=== PATIENT | male | born 1950 | race Caucasian/White ===

== ENCOUNTER 2017-05-20 09:16 | Emergency (ER) | payer BC ==
--- NOTE | 2017-05-20 09:27 | ED Physician Documentation ---
PD HPI GI BLEED - Stated complaint Stated Complaint: BLACK STOOL - Chief complaint Chief Complaint: Abd Pain - History obtained from History obtained from: Patient - History of Present Illness Timing - onset: How many weeks ago (2 1/2) Timing - duration: Weeks Timing - details: Abrupt onset, Still present Associated symptoms: Black/tarry stool (today, but had taken Pepto first time yesterday. Has had diarrhea for 2 1/2 weeks and noted some cramping pains yesterday.), Diarrhea. No: Vomiting, Coffee ground emesis, Constipation, Chest pain, Fever Contributing factors: No: Sick contact, Bad food, Travel, Recent antibiotics, Alcohol use, NSAID use Improved by: No: BM Worsened by: Eating Similar symptoms before: Has not had sx before Recently seen: Not recently seen Review of Systems Constitutional: reports: Myalgias. denies: Fever, Chills Nose: denies: Rhinorrhea / runny nose, Congestion Throat: denies: Sore throat Cardiac: denies: Chest pain / pressure Respiratory: denies: Cough GI: reports: Diarrhea : denies: Dysuria, Frequency Neurologic: reports: Generalized weakness. denies: Focal weakness, Numbness, Near syncope Endocrine: denies: Weight loss, Easy bruising / bleeding Immunocompromised: denies: Immunocompromised PD PAST MEDICAL HISTORY - Past Medical History Cardiovascular: None Respiratory: None Neuro: None Endocrine/Autoimmune: None GI: None - Present Medications Home Medications: Ambulatory Orders Medication Instructions Recorded Confirmed Dexamethasone [Decadron] 4 mg PO DAILY #5 tablet 05/20/17 Diphenoxylate/Atropine [Lomotil] 1 each PO QID PRN #20 tablet 05/20/17 Saccharomyces Boulardii [Florastor] 250 mg PO BID #20 capsule 05/20/17 - Allergies Allergies/Adverse Reactions: Allergies Allergy/AdvReac Type Severity Reaction Status Date / Time No Known Drug Allergies Allergy Verified 05/20/17 09:24 PD ED PE NORMAL - General General: Alert and oriented X 3, No acute distress, Well developed/nourished - HEENT HEENT: Ears normal, Pharynx benign - Neck Neck: Supple, no meningeal sign, No adenopathy - Cardiac Cardiac: RRR, No murmur - Respiratory Respiratory: Clear bilaterally - Abdomen Abdomen: Normal bowel sounds, Soft, Non tender, Non distended, No organomegaly - Rectal Rectal: Deferred, Other (he had BM in ED which was soft dark, and tested guiac negative. ) - Back Back: No CVA TTP - Derm Derm: Normal color, Warm and dry - Extremities Extremities: No deformity, No tenderness to palpate, Normal ROM s pain, No edema , No calf tenderness / cord - Neuro Neuro: Alert and oriented X 3, No motor deficit, Normal speech Results - Vitals Vitals: Vital Signs - 24 hr 05/20/17 05/20/17 09:22 10:30 Temperature 36.5 C 36.6 C Heart Rate 96 84 Respiratory 16 15 Rate Blood Pressure 190/103 H 155/88 H O2 Saturation 96 96 Oxygen O2 Source Room air - Labs Labs: Microbiology 05/20/17 11:10 Clostridium difficile (PCR) - Final Stool 05/20/17 11:10 Campylobacter Antigen Assay - Final Stool Laboratory Tests 05/20/17 05/20/17 10:33 10:33 WBC 7.4 RBC 4.93 Hgb 16.3 Hct 47.1 MCV 95.6 H MCH 33.2 H MCHC 34.7 RDW 12.9 Plt Count 156 MPV 7.1 L Neut # 4.4 Lymph # 1.9 [place] # 0.8 Eos # 0.2 Baso # 0.0 Absolute Nucleated RBC 0.00 Nucleated RBCs 0.0 Sodium 139 Potassium 4.2 Chloride 104 Carbon Dioxide 24 Anion Gap 11.0 BUN 17 Creatinine 0.8 Estimated GFR (MDRD) 97 Glucose 119 H Calcium 9.8 Total Bilirubin 0.7 AST 134 H ALT 78 H Alkaline Phosphatase 40 L Total Protein 7.5 Albumin 4.3 Globulin 3.2 Albumin/Globulin Ratio 1.3 Lipase 35 PD MEDICAL DECISION MAKING - ED course Complexity details: reviewed results, considered differential (diarrhea for few weeks. Will get cultures to eval for infectious. He had Pepto yesterday and dark stool today, that is guiac negative. Blood tests are good. ), d/w patient Departure - Departure Disposition: 01 Home, Self Care Clinical Impression: Diarrhea Qualifiers: Diarrhea type: unspecified type Qualified Code(s): R19.7 - Diarrhea, unspecified High blood pressure Qualifiers: Hypertension type: unspecified Qualified Code(s): I10 - Essential (primary) hypertension Condition: Stable Record reviewed to determine appropriate education?: Yes Follow-Up: Rossana Zaidi MD [Primary Care Provider] - Jarad Key MD [Provider Admit Priv/Credential] - Prescriptions: Dexamethasone [Decadron] 4 mg PO DAILY #5 tablet Saccharomyces Boulardii [Florastor] 250 mg PO BID #20 capsule Diphenoxylate/Atropine [Lomotil] 1 each PO QID PRN #20 tablet PRN Reason: Diarrhea Comments: Your stool tested negative for blood and so the darkness is presumed from the Pepto-Bismol. However if at the diarrhea for a few weeks now and so we will try some probiotic twice daily for 7-10 days and an antidiarrheal medicine Lomotil. There may be some intestinal inflammation causing this and so the Decadron anti-inflammatory daily for several days. The stool culture will take about 3 days for results and will call if there is any particular bacteria identified that needs treating. If the symptoms persist despite the above medicines, the next step may be colonoscopy to evaluate and follow-up with your primary care or surgery here on the [facility] to arrange that. Recheck if worsening or other symptoms develop. Discharge Date/Time: 05/20/17 11:37
[2017-05-20 10:30] VITALS: BP 155/88
[2017-05-20] MEDS ORDERED: DIPHENOX/ATROPINE 2.5/0.025 MG TABLET PO STA (10:33)
[2017-05-20] MEDS ORDERED: ACETAMINOPHEN 325 MG TABLET PO STA (10:33)
[2017-05-20 10:42] LABS: BASOPHILS % (AUTO) 0.5 %; EOSINOPHILS # (AUTO) 0.2 10^3/uL (0.0-0.7); HCT - HEMATOCRIT 47.1 % (42.0-52.0); HGB - HEMOGLOBIN 16.3 g/dL (14.0-18.0); LYMPHOCYTES # (AUTO) 1.9 10^3/uL (1.5-3.5); LYMPHOCYTES % (AUTO) 25.6 %; MEAN CORPUSCULAR HEMOGLOBIN 33.2 pg (27.0-31.0); MEAN CORPUSCULAR HGB CONC 34.7 g/dL (32.0-36.0); MEAN CORPUSCULAR VOLUME 95.6 fL (80.0-94.0); MEAN PLATELET VOLUME 7.1 fL (7.4-11.4); MONOCYTES # (AUTO) 0.8 10^3/uL (0.0-1.0); MONOCYTES % (AUTO) 11.4 %; NEUTROPHILS # (AUTO) 4.4 10^3/uL (1.5-6.6); NEUTROPHILS % (AUTO) 59.5 %; RED BLOOD COUNT 4.93 10^6/uL (4.70-6.10); RED CELL DISTRIBUTION WIDTH 12.9 % (12.0-15.0); UNCORRECTED WHITE BLOOD COUNT 7.4 x10^3/uL; WHITE BLOOD COUNT 7.4 x10^3/uL (4.8-10.8)
[2017-05-20 10:58] LABS: ALBUMIN/GLOBULIN RATIO 1.3 (1.0-2.2); BILIRUBIN,TOTAL 0.7 mg/dL (0.2-1.0); CALCIUM 9.8 mg/dL (8.5-10.3); CREATININE 0.8 mg/dL (0.6-1.2); POTASSIUM 4.2 mmol/L (3.5-5.0); TOTAL PROTEIN 7.5 g/dL (6.7-8.2)
[2017-05-20] MEDS ORDERED: ACETAMINOPHEN 325 MG TABLET PO ONE (11:03)
[2017-05-20] MEDS ORDERED: DIPHENOX/ATROPINE 2.5/0.025 MG TABLET PO ONE (11:03)
== END 2017-05-20 11:37 | disposition home or self-care (01) ==
LOC: ED 09:16
DX: R19.7 Diarrhea, unspecified (principal); I10 Essential (primary) hypertension
CPT/HCPCS: 36415; 80053; 83690; 85025; 87045; 87046; 87493; 99283; A9270

== ENCOUNTER 2017-11-01 11:00 | Emergency (ER) | payer BC ==
--- NOTE | 2017-11-01 11:29 | XRAY Preliminary Report ---
Exam: XR CHEST 2 VIEW X-RAY IMPRESSION: No radiographically apparent acute abnormality in the chest. [facility] SITE ID: [id number]
--- NOTE | 2017-11-01 11:29 | XRAY Report ---
EXAM: CHEST RADIOGRAPHY EXAM DATE: 11/01/2017 11:24 AM. CLINICAL HISTORY: Productive cough. COMPARISON: None. TECHNIQUE: 2 views. FINDINGS: Lungs/Pleura: No focal opacities evident. No pleural effusion. No pneumothorax. Normal volumes. Mediastinum: Heart and mediastinal contours are unremarkable. Other: None. IMPRESSION: No radiographically apparent acute abnormality in the chest. [facility] Referring Provider Line: [phone] SITE ID: [id number]
--- NOTE | 2017-11-01 12:21 | ED Physician Documentation ---
PD HPI URI - Stated complaint Stated Complaint: WEAKNESS/COUGH - Chief complaint Chief Complaint: Resp - History obtained from History obtained from: Patient - History of Present Illness Timing - onset: How many weeks ago (1) Timing duration: Weeks (1) Timing details: Gradual onset Pain level max: 5 Pain level now: 3 Associated symptoms: Fever (yesterday, none today), Nasal congestion, Rhinorrhea , Dry cough, Chest pain (With coughing only), NVD (No vomiting, small amount of diarrhea). No: Sore throat, Hemoptysis, Dyspnea Contributing factors: Sick contact. No: Travel, Immunocompromised, Unimmunized , COPD / asthma Improves by: Rest Worsened by: Activity, Breathing Similar symptoms before: Has not had sx before Recently seen: Not recently seen Review of Systems Nose: reports: Rhinorrhea / runny nose, Congestion GI: denies: Abdominal Pain, Nausea, Vomiting : denies: Dysuria Skin: denies: Rash Musculoskeletal: denies: Neck pain, Back pain Neurologic: denies: Seizure, Headache PD PAST MEDICAL HISTORY - Past Medical History Cardiovascular: Hypertension Respiratory: None Neuro: None Endocrine/Autoimmune: None GI: GERD Musculoskeletal: Osteoarthritis - Past Surgical History General: Appendectomy, Colonoscopy - Present Medications Home Medications: Ambulatory Orders Medication Instructions Recorded Confirmed Benzonatate [Tessalon Perle] 100 - 200 mg PO TID PRN #30 capsule 11/01/17 Hydrocodone/Chlorphen P-Stirex 5 ml PO BID PRN #90 ml 11/01/17 [Hydrocodone-Chlorphen ER Susp] - Allergies Allergies/Adverse Reactions: Allergies Allergy/AdvReac Type Severity Reaction Status Date / Time No Known Drug Allergies Allergy Verified 11/01/17 11:05 - Social History Does the pt smoke?: No Smoking Status: Former smoker Does the pt drink ETOH?: Yes Does the pt have substance abuse?: No Substance Use and Type: Marijuana - Immunizations Immunizations are current?: Yes - POLST Patient has POLST: No PD ED PE NORMAL - Vitals Vital signs reviewed: Yes - General General: Alert and oriented X 3, No acute distress, Well developed/nourished - HEENT HEENT: PERRL, Ears normal, Moist mucous membranes, Pharynx benign - Neck Neck: Supple, no meningeal sign - Cardiac Cardiac: RRR, Strong equal pulses - Respiratory Respiratory: No respiratory distress, Clear bilaterally - Abdomen Abdomen: Soft, Non tender, Non distended - Derm Derm: Warm and dry - Extremities Extremities: No edema - Neuro Neuro: Alert and oriented X 3 - Psych Psych: Normal mood, Normal affect Results - Vitals Vitals: Vital Signs - 24 hr 11/01/17 11:02 Temperature 36.6 C Heart Rate 99 Respiratory 22 Rate Blood Pressure 183/100 H O2 Saturation 93 Oxygen O2 Source Room air - Labs Labs: Laboratory Tests 11/01/17 11:45 Influenza A (Rapid) Negative Influenza B (Rapid) Negative Influenza Types A,B Ag - - Rads (name of study) cxr Radiology: Prelim report reviewed, EMP read contemporaneously, See rad report ( normal) PD MEDICAL DECISION MAKING - ED course Complexity details: reviewed results, re-evaluated patient, considered differential, d/w patient ED course: Patient is a 67-year-old gentleman with what appears to be a viral upper respiratory infection. Evidence of pneumonia. No evidence of sepsis. He is well-appearing, nontoxic. Lungs are clear to auscultation bilaterally. We will continue supportive care and follow-up with his doctor. Patient counseled regarding signs and symptoms for which I believe and urgent re-evaluation would be necessary. Patient with good understanding of and agreement to plan and is comfortable going home at this time This document was made in part using voice recognition software. While efforts are made to proofread this document, sound alike and grammatical errors may occur. Departure - Departure Disposition: 01 Home, Self Care Clinical Impression: Viral syndrome Hypertension Qualifiers: Hypertension type: unspecified Qualified Code(s): I10 - Essential (primary) hypertension Condition: Good Instructions: ED Viral Syndrome Follow-Up: Rossana Zaidi MD [Primary Care Provider] - Within 1 week Prescriptions: Benzonatate [Tessalon Perle] 100 - 200 mg PO TID PRN #30 capsule PRN Reason: Cough Hydrocodone/Chlorphen P-Stirex [Hydrocodone-Chlorphen ER Susp] 5 ml PO BID PRN # 90 ml PRN Reason: Cough Comments: Return if you worsen. This should improve over the next week. Do not drink alcohol or drive while on narcotic pain medicine. Note that many narcotic pain relievers also contain tylenol/acetaminophen. Please ensure that your total dose of acetaminophen from all sources does not exceed 3 grams (3000mg) per day. You may constipated on this medication, take a stool softener such as "Colace" twice a day while you are on it. Also recommend a [id number] laxative such as senna or MiraLAX any day that you do not have a bowel movement. If you received narcotic pain medication in the emergency department, do not drive or operate machinery for the next 24 hours.
[2017-11-01 12:32] VITALS: BP 164/110
== END 2017-11-01 12:32 | disposition home or self-care (01) ==
LOC: ED 11:00
DX: B34.9 Viral infection, unspecified (principal); I10 Essential (primary) hypertension; Z87.891 Personal history of nicotine dependence
CPT/HCPCS: 71046; 87275; 87276; 99283; 99284

== ENCOUNTER 2018-04-17 10:11 | Emergency (ER) | payer BC ==
[2018-04-17] MEDS ORDERED: oxyCOD/ACETAMIN 5 MG/325 MG TABLET PO STA (11:00)
[2018-04-17] MEDS ORDERED: CYCLOBENZAPRINE 10 MG TABLET PO STA (11:00)
[2018-04-17] MEDS ORDERED: LIDOCAINE PATCH 5% TOP PRN (11:00)
--- NOTE | 2018-04-17 11:06 | ED Physician Documentation ---
History of Present Illness - Stated complaint Stated Complaint: LEG INJURY - Chief complaint Chief Complaint: Ext Problem - Additonal information Additional information: hx from pt stepping over a chain and caught back foot lunged / fell forward iinjuring L hamstring no head neck injury - has pre-existing spine issues but no acute change Review of Systems Musculoskeletal: reports: Extremity pain PD PAST MEDICAL HISTORY - Past Medical History Past Medical History: Yes Cardiovascular: Hypertension Respiratory: None Endocrine/Autoimmune: None GI: GERD Musculoskeletal: Osteoarthritis - Past Surgical History Past Surgical History: Yes General: Appendectomy, Colonoscopy - Present Medications Home Medications: Ambulatory Orders Medication Instructions Recorded Confirmed Cyclobenzaprine [Flexeril] 10 mg PO TID PRN #20 tablet 04/17/18 Ibuprofen [Motrin] 400 mg PO Q6H PRN #30 tablet 04/17/18 Lidocaine Patch 5% [Lidoderm Patch] 1 each TOP DAILY PRN #10 patch 04/17/18 - Allergies Allergies/Adverse Reactions: Allergies Allergy/AdvReac Type Severity Reaction Status Date / Time No Known Drug Allergies Allergy Verified 11/01/17 11:05 - Social History Does the pt smoke?: Yes Smoking Status: Current every day smoker Does the pt drink ETOH?: Yes Does the pt have substance abuse?: No - Immunizations Immunizations are current?: Yes - POLST Patient has POLST: No PD ED PE NORMAL - Vitals Vital signs reviewed: Yes - Cardiac Cardiac: RRR - Respiratory Respiratory: No respiratory distress, Clear bilaterally - Extremities Extremities: Other (hip and knee s sig TTP or deformity, TTP and spasm to L hamstring, no palpa mm defect, msv intact) Results - Vitals Vitals: Vital Signs - 24 hr 04/17/18 10:17 Temperature 36.7 C Heart Rate 73 Respiratory 18 Rate Blood Pressure 175/95 H O2 Saturation 97 Oxygen O2 Source Room air PD MEDICAL DECISION MAKING - Sepsis Event Vital Signs: Vital Signs - 24 hr 04/17/18 10:17 Temperature 36.7 C Heart Rate 73 Respiratory 18 Rate Blood Pressure 175/95 H O2 Saturation 97 Oxygen O2 Source Room air Departure - Departure Disposition: 01 Home, Self Care Clinical Impression: Hamstring muscle strain Qualifiers: Encounter type: initial encounter Laterality: left Qualified Code(s): S76.312A - Strain of muscle, fascia and tendon of the posterior muscle group at thigh level, left thigh, initial encounter Condition: Good Instructions: ED Strain Muscle Ext Follow-Up: Rossana Zaidi MD [Primary Care Provider] - Prescriptions: Cyclobenzaprine [Flexeril] 10 mg PO TID PRN #20 tablet PRN Reason: Spasms Ibuprofen [Motrin] 400 mg PO Q6H PRN #30 tablet PRN Reason: Pain Lidocaine Patch 5% [Lidoderm Patch] 1 each TOP DAILY PRN #10 patch PRN Reason: Pain Comments: It doesn't appear there is any bony injury Recommend and EMILY wrap for swelling and to support the muscle Crutches as needed to decrease weight bearing stress Motrin and ice for inflammation and pain And a muscle relaxant for the spasm A muscle roller to help break up the spasm would be helpful also - available at [facility] and [facility] And please get your blood pressure rechecked - it was high today
[2018-04-17 11:25] VITALS: BP 150/91
== END 2018-04-17 11:24 | disposition home or self-care (01) ==
LOC: ED 10:11
DX: S76.312A Strain of muscle, fascia and tendon of the posterior muscle group at thigh level, left thigh, initial encounter (principal); W01.10XA Fall on same level from slipping, tripping and stumbling with subsequent striking against unspecified object, initial encounter; Y93.01 Activity, walking, marching and hiking; Y92.832 Beach as the place of occurrence of the external cause; I10 Essential (primary) hypertension; F17.200 Nicotine dependence, unspecified, uncomplicated
CPT/HCPCS: 99283; A9270

== ENCOUNTER 2019-11-29 07:45 | Emergency (ER) | payer BC ==
[2019-11-29 07:58] VITALS: BP 140/88
[2019-11-29] MEDS ORDERED: MELOXICAM 7.5 MG TABLET PO STA (08:22)
--- NOTE | 2019-11-29 08:39 | ED Physician Documentation ---
History of Present Illness - Stated complaint Stated Complaint: L KNEE PX - Chief complaint Chief Complaint: Ext Problem - History obtained from History obtained from: Patient - History of Present Illness Timing: Yesterday Pain level max: 8 Pain level now: 8 - Additonal information Additional information: 69-year-old male presents to the emergency department left knee pain. He states worse after walking a few miles yesterday. It is on the superior aspect of the patella. Worse with movement and better with rest. Does not recall any specific injury. Mild swelling. No redness. No fevers. Review of Systems Constitutional: denies: Fever, Chills GI: denies: Vomiting, Diarrhea Skin: denies: Rash Musculoskeletal: denies: Neck pain, Back pain PD PAST MEDICAL HISTORY - Past Medical History Past Medical History: Yes Cardiovascular: Hypertension Respiratory: None Endocrine/Autoimmune: None GI: GERD Musculoskeletal: Osteoarthritis - Past Surgical History Past Surgical History: Yes General: Appendectomy, Colonoscopy - Present Medications Home Medications: Ambulatory Orders Medication Instructions Recorded Confirmed Bp Medication 11/29/19 Gabapentin 600 mg PO 11/29/19 Hydrocodone/Acetaminophen 1 - 2 each PO Q6H PRN #14 tablet 11/29/19 [Hydrocodon-Acetaminophen 5-325] Meloxicam [Mobic] 15 mg PO DAILY PRN #20 tablet 11/29/19 predniSONE [Prednisone] 40 mg PO DAILY #10 tablet 11/29/19 - Allergies Allergies/Adverse Reactions: Allergies Allergy/AdvReac Type Severity Reaction Status Date / Time No Known Drug Allergies Allergy Verified 11/29/19 07:58 - Social History Does the pt smoke?: Yes Smoking Status: Current every day smoker Does the pt drink ETOH?: Yes Does the pt have substance abuse?: No - Immunizations Immunizations are current?: Yes - POLST Patient has POLST: No PD ED PE NORMAL - Vitals Vital signs reviewed: Yes - General General: Alert and oriented X 3, No acute distress - HEENT HEENT: Moist mucous membranes - Derm Derm: Warm and dry - Extremities Extremities: Other (L knee - TTP over the suprapatellar bursa with mild swelling here. tendon intact. Extension of the leg normal, but with pain. NVI. no bony tenderness. No joint effusion. All ligaments are intact.) - Neuro Neuro: Alert and oriented X 3 Results - Vitals Vitals: Vital Signs - 24 hr 11/29/19 07:55 Temperature 36.4 C L Heart Rate 73 Respiratory 16 Rate Blood Pressure 140/88 H O2 Saturation 99 Oxygen O2 Source Room air - Rads (name of study) L knee xray Radiology: Prelim report reviewed, EMP read contemporaneously, See rad report (No acute abnormality) PD MEDICAL DECISION MAKING - ED course Complexity details: reviewed results, re-evaluated patient, considered differential, d/w patient ED course: Patient with a left knee suprapatellar bursitis. Will place on anti- inflammatories and Tylenol short course of steroids. Compression applied. Patient has crutches at home. Patient counseled regarding signs and symptoms for which I believe and urgent re-evaluation would be necessary. Patient with good understanding of and agreement to plan and is comfortable going home at this time This document was made in part using voice recognition software. While efforts are made to proofread this document, sound alike and grammatical errors may occur. No gout. No septic joint. Departure - Departure Disposition: 01 Home, Self Care Clinical Impression: Knee bursitis Qualifiers: Knee bursitis location: suprapatellar bursitis Laterality: left Qualified Code(s): M70.52 - Other bursitis of knee, left knee Condition: Good Instructions: ED Bursitis Follow-Up: Rossana Zaidi MD [Primary Care Provider] - Within 1 week Prescriptions: Hydrocodone/Acetaminophen [Hydrocodon-Acetaminophen 5-325] 1 - 2 each PO Q6H PRN #14 tablet PRN Reason: pain Meloxicam [Mobic] 15 mg PO DAILY PRN #20 tablet PRN Reason: pain predniSONE [Prednisone] 40 mg PO DAILY #10 tablet Comments: You may bear weight as tolerated. Return if you worsen. This should improve over the next week. Ice will also help. Limit your walking. Do not drink alcohol or drive while on narcotic pain medicine. Note that many narcotic pain relievers also contain tylenol/acetaminophen. Please ensure that your total dose of acetaminophen from all sources does not exceed 3 grams (3000mg) per day. You may constipated on this medication, take a stool softener such as "Colace" twice a day while you are on it. Also recommend a [id number] laxative such as senna or MiraLAX any day that you do not have a bowel movement. If you received narcotic pain medication in the emergency department, do not drive or operate machinery for the next 24 hours.
--- NOTE | 2019-11-29 08:44 | XRAY Report ---
Reason: L knee pain, no injury Procedure Date: 11/29/2019 Accession Number: [id number] / [id number] Procedure: XR - Knee 4 View LT CPT Code: Final Report FULL RESULT: EXAM: LEFT KNEE RADIOGRAPHY EXAM DATE: 11/29/2019 08:38 AM. CLINICAL HISTORY: Left knee pain. COMPARISON: XR KNEE 3 VIEWS-RIGHT 09/27/2019 12:03 PM. TECHNIQUE: 4 views. FINDINGS: Bones: No evidence of acute fracture. There are tibial and patellar enthesophytes. Joints: No evidence of dislocation. Joint spacing is maintained. No evidence of joint effusion. Soft Tissues: No unexpected soft tissue findings. Vascular calcifications. IMPRESSION: No evidence of fracture or dislocation. [facility]
== END 2019-11-29 09:06 | disposition home or self-care (01) ==
LOC: ED 07:45
DX: M70.52 Other bursitis of knee, left knee (principal); Y93.01 Activity, walking, marching and hiking; I10 Essential (primary) hypertension; F17.210 Nicotine dependence, cigarettes, uncomplicated
CPT/HCPCS: 73564; 99283; 99284; A9270

== ENCOUNTER 2021-11-24 19:28 | Emergency (ER) | payer BC ==
[2021-11-24 19:40] VITALS: BP 157/82
[2021-11-24 19:51] LABS: BILIRUBIN,URINE NEGATIVE (NEGATIVE); GLUCOSE, URINE (UA) NEGATIVE (NEGATIVE); KETONES,URINE (UA) 40 mg/dL (NEGATIVE); LEUKOCYTE ESTERASE, URINE NEGATIVE (NEGATIVE); NITRITE,URINE NEGATIVE (NEGATIVE); OCCULT BLOOD,URINE NEGATIVE (NEGATIVE); PH,URINE 5.5 PH (5.0-7.5); PROTEIN,URINE NEGATIVE (NEGATIVE); UROBILINOGEN,URINE 0.2 (NORMAL) E.U./dL (NORMAL)
[2021-11-24 19:53] LABS: CLARITY,URINE CLEAR (CLEAR)
[2021-11-24 19:55] LABS: BASOPHILS # (AUTO) 0.1 10^3/uL (0.0-0.1); BASOPHILS % (AUTO) 0.5 %; EOSINOPHILS % (AUTO) 0.1 %; HCT - HEMATOCRIT 47.1 % (42.0-52.0); HGB - HEMOGLOBIN 16.5 g/dL (14.0-18.0); LYMPHOCYTES # (AUTO) 0.3 10^3/uL (1.5-3.5); LYMPHOCYTES % (AUTO) 3.3 %; MEAN CORPUSCULAR HEMOGLOBIN 33.6 pg (27.0-31.0); MEAN CORPUSCULAR VOLUME 95.9 fL (80.0-94.0); MEAN PLATELET VOLUME 9.3 fL (7.4-11.4); MONOCYTES # (AUTO) 0.6 10^3/uL (0.0-1.0); MONOCYTES % (AUTO) 5.9 %; NEUTROPHILS # (AUTO) 8.8 10^3/uL (1.5-6.6); NEUTROPHILS % (AUTO) 89.9 %; PLT - PLATELET COUNT 149 10^3/uL (130-450); RED BLOOD COUNT 4.91 10^6/uL (4.70-6.10); RED CELL DISTRIBUTION WIDTH 11.9 % (12.0-15.0); WHITE BLOOD COUNT 9.8 x10^3/uL (4.8-10.8)
[2021-11-24 20:08] LABS: ALBUMIN 4.5 g/dL (3.2-5.5); ALBUMIN/GLOBULIN RATIO 1.3 (1.0-2.2); BILIRUBIN,TOTAL 0.8 mg/dL (0.2-1.0); CALCIUM 9.5 mg/dL (8.5-10.3); CREATININE 0.7 mg/dL (0.6-1.2); POTASSIUM 3.9 mmol/L (3.5-5.0)
--- NOTE | 2021-11-24 20:08 | ED Physician Documentation ---
PD HPI ABD PAIN - Stated complaint Stated Complaint: VOMIT,FEVER,DIARRHEA - Chief complaint Chief Complaint: Abd Pain - History obtained from History obtained from: Patient - Additional information Additional information: 71-year-old gentleman became ill overnight last night with profuse diarrhea and then was vomiting throughout the day today. He was quite ill around 2 PM today but since 5 PM has started feeling better. He is no longer nauseous and really never had significant abdominal pain. He was quite fatigued through the day but overall is generally feeling better now. No sick contacts or recent travel. Review of Systems Ten Systems: 10 systems reviewed and negative Constitutional: reports: Fatigue, Sweats. denies: Fever, Chills Cardiac: denies: Chest pain / pressure, Palpitations Respiratory: denies: Dyspnea, Cough PD PAST MEDICAL HISTORY - Past Medical History Cardiovascular: Hypertension Respiratory: None Endocrine/Autoimmune: None GI: GERD Musculoskeletal: Osteoarthritis - Past Surgical History Past Surgical History: Yes General: Appendectomy, Colonoscopy - Present Medications Home Medications: Ambulatory Orders Medication Instructions Recorded Confirmed Bp Medication 11/29/19 Gabapentin 600 mg PO 11/29/19 Hydrocodone/Acetaminophen 1 - 2 each PO Q6H PRN #14 tablet 11/29/19 [Hydrocodon-Acetaminophen 5-325] Meloxicam [Mobic] 15 mg PO DAILY PRN #20 tablet 11/29/19 predniSONE [Prednisone] 40 mg PO DAILY #10 tablet 11/29/19 - Allergies Allergies/Adverse Reactions: Allergies Allergy/AdvReac Type Severity Reaction Status Date / Time No Known Drug Allergies Allergy Verified 11/24/21 19:40 - Social History Does the pt smoke?: Yes Smoking Status: Former smoker (but uses nicotine gum) Does the pt drink ETOH?: Yes Does the pt have substance abuse?: No - Immunizations Immunizations are current?: Yes - POLST Patient has POLST: No PD ED PE NORMAL - Vitals Vital signs reviewed: Yes - General General: Alert and oriented X 3, No acute distress - HEENT HEENT: PERRL, EOMI - Neck Neck: Supple, no meningeal sign, No bony TTP - Cardiac Cardiac: RRR, Other (Decrescendo systolic murmur heard best at the left lower sternal border. Chronic per patient and diagnosed in his 20s.) - Respiratory Respiratory: No respiratory distress, Clear bilaterally - Abdomen Abdomen: Normal bowel sounds, Soft, Non tender - Back Back: No CVA TTP, No spinal TTP - Derm Derm: Normal color, Warm and dry - Extremities Extremities: No edema, No calf tenderness / cord - Neuro Neuro: Alert and oriented X 3, Normal speech - Psych Psych: Normal mood, Normal affect Results - Vitals Vitals: Vital Signs - 24 hr 11/24/21 11/24/21 19:34 20:23 Temperature 36.9 C Heart Rate 89 70 Respiratory 16 14 Rate Blood Pressure 157/82 H O2 Saturation 96 98 Oxygen O2 Source Room air - EKG (time done) 2005 Rate: Rate (enter#) (81) Rhythm: NSR [place]: Normal Intervals: Normal VT QRS: Normal Ischemia: Normal ST segments - Labs Labs: Laboratory Tests 11/24/21 11/24/21 11/24/21 19:42 19:50 19:50 WBC 9.8 RBC 4.91 Hgb 16.5 Hct 47.1 MCV 95.9 H MCH 33.6 H MCHC 35.0 RDW 11.9 L Plt Count 149 MPV 9.3 Neut # (Auto) 8.8 H Lymph # (Auto) 0.3 L [place] # (Auto) 0.6 Eos # (Auto) 0.0 Baso # (Auto) 0.1 Absolute Nucleated RBC 0.00 Nucleated RBC % 0.0 Sodium 133 L Potassium 3.9 Chloride 100 L Carbon Dioxide 22 Anion Gap 11.0 BUN 19 Creatinine 0.7 Estimated GFR (MDRD) 111 Glucose 138 H Calcium 9.5 Total Bilirubin 0.8 AST 44 H ALT 33 Alkaline Phosphatase 45 Total Protein 8.0 Albumin 4.5 Globulin 3.5 Albumin/Globulin Ratio 1.3 Lipase 32 Urine Color YELLOW Urine Clarity CLEAR Urine pH 5.5 Ur Specific [place] 1.025 Urine Protein NEGATIVE Urine Glucose (UA) NEGATIVE Urine Ketones 40 H Urine Occult Blood NEGATIVE Urine Nitrite NEGATIVE Urine Bilirubin NEGATIVE Urine Urobilinogen 0.2 (NORMAL) Ur Leukocyte Esterase NEGATIVE Ur Microscopic Review NOT INDICATED Urine Culture Comments NOT INDICATED PD MEDICAL DECISION MAKING - ED course ED course: 71-year-old gentleman with vomiting and diarrhea. He states his symptoms are quickly resolving but was advised by his physician to seek evaluation in the emergency department. Sounds like simple gastroenteritis. Exam is benign. Given the vomiting and fatigue will perform an EKG but low pretest probability for ACS. Departure - Departure Disposition: 01 Home, Self Care Clinical Impression: Gastroenteritis Condition: Good Record reviewed to determine appropriate education?: Yes Instructions: ED Gastroenteritis Non Infec Comments: You are seen today for what sounds like a uncomplicated gastroenteritis. This is a self-limited syndrome with vomiting and diarrhea that generally does not last too long. Thankfully you are already feeling mostly better on your visit here today. We did labs which were generally unremarkable, mildly low sodium level. Your EKG looks quite good. Return if you worsen or if you still feel at all ill in the morning. Follow-up with your primary care physician, next available appointment for recheck. Your blood pressure was elevated today on check into the emergency department. This does not mean that you have hypertension, it is a common phenomenon to come to the emergency department and have elevated blood pressure. I recommend that you see your primary care physician within the week to have it rechecked when you are feeling better. Discharge Date/Time: 11/24/21 20:23
== END 2021-11-24 20:23 | disposition home or self-care (01) ==
LOC: ED 19:28
DX: K52.9 Noninfective gastroenteritis and colitis, unspecified (principal); I10 Essential (primary) hypertension
CPT/HCPCS: 36415; 80053; 81001; 81003; 83690; 85025; 87086; 93005; 99282; 99283

== ENCOUNTER 2023-04-30 07:58 | Emergency (ER) | payer BC ==
[2023-04-30] MEDS ORDERED: LIDOCAINE PATCH 5% TOP STA (08:17)
--- NOTE | 2023-04-30 08:22 | ED Physician Documentation ---
History of Present Illness - Stated complaint Stated Complaint: CHEST PX - Chief complaint Chief Complaint: General - History obtained from History obtained from: Patient - Additonal information Additional information: Patient is a 73-year-old male presenting for evaluation of left-sided chest pain that is been present since last night. Patient states that he woke up in the middle the night to go to the bathroom and slipped while in the bathroom and falling. He is unsure if he struck his left chest against the bathtub but knows he was trying to brace himself from hitting it too hard. He denies hitting his head or having LOC. He reports sharp pain to this area that is worse with certain movements and if he coughs. He has not tried Any medications for this yet. He denies feeling short of air. He does not take a blood thinner. Pain does not radiate elsewhere. Review of Systems Constitutional: denies: Fever Cardiac: reports: Chest pain / pressure Respiratory: denies: Dyspnea GI: denies: Abdominal Pain Musculoskeletal: denies: Extremity swelling Neurologic: denies: Headache PD PAST MEDICAL HISTORY - Past Medical History Cardiovascular: Hypertension Respiratory: None Endocrine/Autoimmune: None GI: GERD Musculoskeletal: Osteoarthritis - Past Surgical History Past Surgical History: Yes General: Appendectomy, Colonoscopy - Present Medications Home Medications: Ambulatory Orders Medication Instructions Recorded Confirmed Bp Medication 11/29/19 Gabapentin 600 mg PO 11/29/19 Hydrocodone/Acetaminophen 1 - 2 each PO Q6H PRN #14 tablet 11/29/19 [Hydrocodon-Acetaminophen 5-325] Meloxicam [Mobic] 15 mg PO DAILY PRN #20 tablet 11/29/19 predniSONE [Prednisone] 40 mg PO DAILY #10 tablet 11/29/19 Lidocaine Patch 5% [Lidoderm Patch] 1 patch TOP DAILY PRN #10 patch 04/30/23 - Allergies Allergies/Adverse Reactions: Allergies Allergy/AdvReac Type Severity Reaction Status Date / Time No Known Drug Allergies Allergy Verified 11/24/21 19:40 - Social History Does the pt smoke?: Yes Smoking Status: Former smoker (but uses nicotine gum) Does the pt drink ETOH?: Yes Does the pt have substance abuse?: No - Immunizations Immunizations are current?: Yes - POLST Patient has POLST: No PD ED PE NORMAL - General General: Alert and oriented X 3, No acute distress, Well developed/nourished - HEENT HEENT: Atraumatic, Moist mucous membranes - Neck Neck: Supple, no meningeal sign, No bony TTP - Cardiac Cardiac: RRR, Strong equal pulses, Other (Left-sided chest wall tenderness to palpation, no crepitus, no bruising, no deformity, symmetric chest rise) - Respiratory Respiratory: No respiratory distress, Clear bilaterally - Abdomen Abdomen: Soft, Non tender, Non distended - Derm Derm: Warm and dry - Extremities Extremities: No edema, No calf tenderness / cord - Neuro Neuro: Normal speech Results - Vitals Vitals: Vital Signs - 24 hr 04/30/23 04/30/23 08:07 09:30 Temperature 36 C L Heart Rate 65 71 Respiratory 20 20 Rate Blood Pressure 155/76 H 142/85 H O2 Saturation 95 96 Oxygen O2 Source Room air - EKG (time done) 0806 EKG releavant findings:: EKG personally interpreted by author of this note. Relevant findings are: Rate 71, normal sinus rhythm, no STEMI, no significant changes from prior EKG obtained on 11/24/2021 Rate: Rate (enter#) (71) Rhythm: NSR Intervals: No: Prolonged QT Ischemia: No: ST elevation c/w ischemia Compare to prior EKG: Unchanged from prior EKG (Compared to EKG 11/24/21) PD Medical Decision Making - ED course Complexity details: reviewed results, re-evaluated patient, d/w patient ED course: Patient is a 73-year-old male presenting for evaluation of left-sided chest pain after falling yesterday. EKG is reviewed and without signs of acute ischemia. His symptoms are atypical for cardiac etiology or ACS given that this occurred in the setting of trauma and pain is reproducible. Chest x-ray which I reviewed is negative for pneumothorax or obvious rib fractures. Patient counseled on continued supportive care as well as concerning symptoms to return for. Departure - Departure Disposition: 01 Home, Self Care Clinical Impression: Chest wall pain Condition: Stable Instructions: ED Strain Chest Wall Follow-Up: Rossana Zaidi MD [Primary Care Provider] - Prescriptions: Lidocaine Patch 5% [Lidoderm Patch] 1 patch TOP DAILY PRN #10 patch PRN Reason: pain Comments: You were evaluated for pain to the left side of your chest after falling yesterday. Your x-ray does not show signs of a broken rib or a collapsed lung. Please continue with anti-inflammatory such as acetaminophen or ibuprofen, lidocaine patches and follow-up with your primary care provider on as already scheduled. I have sent a prescription for lidocaine patches to [facility] in [place]. Please return to the emergency department if you develop worsening symptoms such as pain in a new location or difficulty with breathing. Forms: PCP List Discharge Date/Time: 04/30/23 09:31
--- NOTE | 2023-04-30 09:01 | XRAY Report ---
PROCEDURE: Ribs 2 View LT INDICATIONS: L sided pain after fall TECHNIQUE: 3 views of the left ribs were acquired. COMPARISON: None. FINDINGS: Surgical changes and devices: None. Bones and chest wall: No fractures or dislocations. No suspicious bony lesions. Overlying soft tis sues appear unremarkable. Lungs and pleura: The visualized lung appears clear. No pleural effusions or pneumothorax are visib le. IMPRESSION: No displaced fracture or pneumothorax. Reviewed by: Frankie Coker MD on 04/30/2023 9:00 AM PDT Approved by: Frankie Coker MD on 04/30/2023 9:00 AM PDT Station ID: [id number]
--- NOTE | 2023-04-30 09:02 | XRAY Report ---
PROCEDURE: Chest 1 View X-Ray INDICATIONS: L sided pain after fall TECHNIQUE: One view of the chest was acquired. COMPARISON: None. FINDINGS: Surgical changes and devices: None. Lungs and pleura: No pleural effusions or pneumothorax. Lungs are clear. Mediastinum: Mediastinal contours appear normal. Heart size is normal. Bones and chest wall: No suspicious bony lesions. Overlying soft tissues appear unremarkable. IMPRESSION: No acute cardiopulmonary process. Reviewed by: Frankie Coker MD on 04/30/2023 9:00 AM PDT Approved by: Frankie Coker MD on 04/30/2023 9:00 AM PDT Station ID: [id number]
[2023-04-30 09:34] VITALS: BP 142/85; O2SAT 96
== END 2023-04-30 09:31 | disposition home or self-care (01) ==
LOC: ED 07:58
DX: R07.89 Other chest pain (principal); Z87.891 Personal history of nicotine dependence
CPT/HCPCS: 71045; 71100; 93005; 99284; A9270